=== PATIENT | female | born 1940 | race Caucasian/White ===

== ENCOUNTER → 2017-10-14 | Outpatient (CLI) | payer MEDICARE, OTHER ==
[~2017-10-14] MED LIST: AMOX-559 PO; AZIT-1 PO; AZIT500T47 PO; BENZ-23 PO; CEPH-13 PO; CET10 PO; CETI-169 PO; CHOL10005 PO; CIPR-214 PO; DOXY-260 PO; FLU180SY9 IM; FLUT10SP; GUAI1TAB PO; HYDEL PO; HYDR-385 PO; IBU600 PO; LIS10 PO; LISI-362 PO; LISI20TA29 PO; NITR-105 PO; PNEI IJ; PNEU0.5D3 IM; ROSU20TA13 PO; SULF-198 PO; TRI40I INTRA-ART
== END ==
LOC: LAB 14:23
PROVIDERS: ATTEND Internal Medicine
DX: R39.15 Urgency of urination (principal); R35.0 Frequency of micturition; B96.20 Unspecified Escherichia coli [E. coli] as the cause of diseases classified elsewhere
CPT/HCPCS: 81001; 87077; 87088; 87186

== ENCOUNTER 2018-07-18 13:34 | Emergency (ER) | payer MEDICARE, OTHER ==
[~2018-07-18 13:34] MED LIST changes: -ROSU20TA13 PO; +ROSU20TA5 PO
--- NOTE | 2018-07-18 13:49 | ER Report ---
History and Physical Time Seen By MD: 13:49 HPI/ROS CHIEF COMPLAINT: Urinary urgency HISTORY OF PRESENT ILLNESS: 78-year-old female patient presents to emergency room with complaint of urinary urgency. Patient states that this started this morning. [place] her . They were out doing work and she was having him stop the truck every 10 minutes as she can go to the bathroom. She denies having any fevers, chills, nausea, vomiting or diarrhea. Patient denies having any back pain. Patient states she is not taking any medication for this. Allergies: Coded Allergies: Sulfa (Sulfonamide Antibiotics) (Verified Allergy, Mild, 07/18/18) ciprofloxacin (Verified Allergy, Mild, RASH, 07/18/18) iodine (Verified Allergy, Mild, 07/18/18) Home Meds Active Scripts Cephalexin 500 Mg Tab (KEFLEX 500 MG TAB) 500 Mg Tablet, 500 MG PO BID, #14 TAB Prov:KHLOE FAJARDO [employer]ING [employer]ACHINE [employer]ENDER 07/18/18 Lisinopril (LISINOPRIL) 20 Mg Tablet, 1 TAB PO QDAY, #90 TAB 4 Refills Prov:LINDY TORRES APRN [employer]DERING [employer]ACHINE TENDER-C 09/05/17 Discontinued Scripts Nitrofurantoin Monohyd/M-Cryst (MACROBID 100 MG CAPSULE) 100 Mg Capsule, 1 CAP PO BID, #10 CAPSULE 0 Refills Prov:DAMON ALCANTARA MD 10/14/17 Past Medical/Surgical History Patient has a past medical history of frequent UTI, hypertension. Patient has surgical history of tubal , appendectomy, right Achilles tendon surgery, tonsillectomy. Reviewed Nurses Notes: Yes Smoking Status: Never Smoker Constitutional Vital Sign - Last 24 Hours 07/18/18 07/18/18 07/18/18 07/18/18 13:44 13:47 14:00 14:04 Temp 97.5 Pulse 91 87 Resp 12 B/P (MAP) 149/87 (107) 149/87 137/84 (101) Pulse Ox 92 88 O2 Delivery Room Air Physical Exam General appearance: Alert no distress. Respiratory: Chest is non tender, lungs are clear to auscultation. Cardiac: Regular rate and rhythm. Musculoskeletal: Patient has no CVA tenderness. DIFFERENTIAL DIAGNOSIS: After history and physical exam differential diagnosis was considered for urinary tract infection, dysuria, cystitis. Medical Decision Making Data Points Laboratory Hematology Test 07/18/18 13:39 Urine Color Yellow Urine Clarity Turbid Urine pH 5.0 pH (4.8-9.5) Urine Specific [place] 1.011 Urine Protein 100 mg/dL (NEGATIVE) Urine Glucose (UA) Negative mg/dL (NEGATIVE) Urine Ketones Negative mg/dL (NEGATIVE) Urine Blood Large (NEGATIVE) Urine Nitrite Negative (NEGATIVE) Urine Bilirubin Negative (NEGATIVE) Urine Urobilinogen Negative mg/dL (0.2-1.9) Urine Leukocyte Esterase Large (NEGATIVE) Urine RBC 282 /HPF (0-2/HPF) Urine WBC 2316 /HPF (0-5/HPF) Urine WBC Clumps Few /HPF Urine Squamous Epithelial Cells None /LPF (</=FEW) Urine Bacteria Negative /HPF (NONE-FEW) Urine Mucus None /HPF (NONE-FEW) Chemistry Test 07/18/18 13:39 Urine Color Yellow Urine Clarity Turbid Urine pH 5.0 pH (4.8-9.5) Urine Specific [place] 1.011 Urine Protein 100 mg/dL (NEGATIVE) Urine Glucose (UA) Negative mg/dL (NEGATIVE) Urine Ketones Negative mg/dL (NEGATIVE) Urine Blood Large (NEGATIVE) Urine Nitrite Negative (NEGATIVE) Urine Bilirubin Negative (NEGATIVE) Urine Urobilinogen Negative mg/dL (0.2-1.9) Urine Leukocyte Esterase Large (NEGATIVE) Urine RBC 282 /HPF (0-2/HPF) Urine WBC 2316 /HPF (0-5/HPF) Urine WBC Clumps Few /HPF Urine Squamous Epithelial Cells None /LPF (</=FEW) Urine Bacteria Negative /HPF (NONE-FEW) Urine Mucus None /HPF (NONE-FEW) Urinalysis Test 07/18/18 13:39 Urine Color Yellow Urine Clarity Turbid Urine pH 5.0 pH (4.8-9.5) Urine Specific [place] 1.011 Urine Protein 100 mg/dL (NEGATIVE) Urine Glucose (UA) Negative mg/dL (NEGATIVE) Urine Ketones Negative mg/dL (NEGATIVE) Urine Blood Large (NEGATIVE) Urine Nitrite Negative (NEGATIVE) Urine Bilirubin Negative (NEGATIVE) Urine Urobilinogen Negative mg/dL (0.2-1.9) Urine Leukocyte Esterase Large (NEGATIVE) Urine RBC 282 /HPF (0-2/HPF) Urine WBC 2316 /HPF (0-5/HPF) Urine WBC Clumps Few /HPF Urine Squamous Epithelial Cells None /LPF (</=FEW) Urine Bacteria Negative /HPF (NONE-FEW) Urine Mucus None /HPF (NONE-FEW) ED Course/Re-evaluation ED Course Patient was admitted to an exam room, history of physical were obtained. Differential diagnoses were considered. On examination lungs are clear, heart is regular, abdomen is soft and nontender. Patient had no CVA tenderness. A urine sample was obtained. She did have large leukocyte esterase with 2000 white blood cells per high-power field. A urine culture was ordered. I discussed the findings with the patient. We will go ahead and treat her with Keflex 500 mg twice a day. She is to follow-up with primary care provider this next week. We will go ahead and call her if there is a need to change her antibiotics. I discussed this with the patient who verbalized understanding and agreement with plan. Decision to Disposition Date: Jul 18, 2018 Decision to Disposition Time: 14:20 Depart Departure Latest Vital Signs Vital Signs Date Time Temp Pulse Resp B/P (MAP) Pulse Ox O2 Delivery O2 Flow Rate FiO2 07/18/18 14:04 87 88 07/18/18 14:00 137/84 (101) 07/18/18 13:47 97.5 12 Room Air Impression: Primary Impression: UTI (urinary tract infection) Condition: Improved Disposition: HOME OR SELF-CARE Referrals: LINDY TORRES APRN-C (PCP) New Scripts Cephalexin 500 Mg Tab (KEFLEX 500 MG TAB) 500 Mg Tablet 500 MG PO BID, #14 TAB Prov: KHLOE FAJARDO 07/18/18 Patient Instructions: Urinary Tract Infection in Women (ED) Additional Instructions: Increase fluid intake. Get plenty of rest. Limit activity by pain. Follow up with your primary care provider in the next week. Return to the ER if condition worsens. We are culturing the urine and will call if we need to change antibiotics. Problem Qualifiers Primary Impression: UTI (urinary tract infection) Urinary tract infection type: acute cystitis Hematuria presence: with hematuria Qualified Codes: N30.01 - Acute cystitis with hematuria KHLOE FAJARDO Jul 18, 2018 13:49
[2018-07-18 14:00] VITALS: BP 137/84
[2018-07-18] MEDS ORDERED: CEPH500T7 PO (14:19)
== END 2018-07-18 14:26 | disposition home or self-care (01) ==
LOC: ER 13:43
DX: N30.01 Acute cystitis with hematuria (principal)
CPT/HCPCS: 81001; 87088; 87186; 99282

== ENCOUNTER → 2018-08-03 | Outpatient (CLI) | payer MEDICARE, OTHER ==
[~2018-08-03] MED LIST changes: +CEPH500T7 PO; +FLU180SY11 IM
== END ==
LOC: LAB 09:28
PROVIDERS: ATTEND Nurse Practitioner Family
DX: R35.0 Frequency of micturition (principal)
CPT/HCPCS: 81001

== ENCOUNTER → 2018-10-21 | Outpatient (CLI) | payer MEDICARE, OTHER ==
--- NOTE | 2018-10-22 16:44 | RADIOLOGY IMAGING REPORT ---
FACILITY: [facility] PATIENT NAME: JOSESITO SALVADOR : [id number] MR: [id number] V: [id number] EXAM DATE: ORDERING PHYSICIAN: LINDY TORRES TECHNOLOGIST: Chelsi Crockett PROCEDURE:BILATERAL DIGITAL SCREENING MAMMOGRAM WITH CAD ASSISTED INTERPRETATION & 3D TOMOSYNTHESIS COMPARISON:None. INDICATIONS:screening FINDINGS: The breasts are heterogeneously dense which can obscure small masses. The parenchymal pattern has remained stable allowing for difference in mammographic technique & patient positioning. DIAGNOSTIC CATEGORY 1--NEGATIVE. RECOMMENDATIONS: ROUTINE MAMMOGRAM AND CLINICAL EVALUATION. IMPRESSION: BIRADS 1: Negative. No significant abnormality is seen. Dictated by: Jolene Ng M.D. on 10/21/2018 at 16:50 Transcribed by: RYLEE on 10/22/2018 at 8:29 Approved by: Jolene Ng M.D. on 10/22/2018 at 16:43 [facility]
== END ==
LOC: MAMO 01:18
PROVIDERS: ATTEND Nurse Practitioner Family
DX: Z12.31 Encounter for screening mammogram for malignant neoplasm of breast (principal)
CPT/HCPCS: 77063; 77067

== ENCOUNTER → 2018-11-05 | Outpatient (CLI) | payer MEDICARE, OTHER | LOC: LAB 11:41 | PROVIDERS: ATTEND Nurse Practitioner Family | DX: N39.0 Urinary tract infection, site not specified (principal); B96.20 Unspecified Escherichia coli [E. coli] as the cause of diseases classified elsewhere | CPT/HCPCS: 87077; 87088; 87186 ==